=== PATIENT | female | born 1990 | race Caucasian/White ===

== ENCOUNTER 2018-09-13 08:35 | Emergency (ER) | payer BC, OTHER ==
[2018-09-13] MEDS ORDERED: SODIUM CHLORIDE 0.9% 1000ML 1,000 ML IV ONE ×2 (08:50→10:12)
[2018-09-13] MEDS ORDERED: ONDANSETRON HCL 4 MG/2 ML SOL IV ONE (08:50)
[2018-09-13] MEDS ORDERED: ONDANSETRON HCL 4 MG/2 ML SOL ONE (09:00)
[2018-09-13 09:01] LABS: BASOPHILS % (AUTO) 0 % (0-3); EOSINOPHILS % (AUTO) 0 % (0-9); HEMATOCRIT 46 % (35-47); HEMOGLOBIN 15.8 gm/dl (12.0-15.5); LYMPHOCYTES % (AUTO) 3.2 % (10-50); MEAN CORPUSCULAR HEMOGLOBIN 29.3 pg (27.0-32.0); MEAN CORPUSCULAR HGB CONC 34.1 gm/dl (32.0-36.0); MEAN CORPUSCULAR VOLUME 86 fL (81-99); MONOCYTES % (AUTO) 3.5 % (0-12); NEUTROPHILS % (AUTO) 93.3 % (37-80)
[2018-09-13 09:15] VITALS: O2SAT 100
[2018-09-13 09:15] LABS: ALBUMIN 4.4 gm/dl (3.4-5.0); BILIRUBIN,TOTAL 1.7 mg/dl (0.2-1.0); CALCIUM 9.4 mg/dl (8.5-10.1); CARBON DIOXIDE 20.3 mEq/L (21-32); CREATININE 1.11 mg/dl (0.60-1.00); POTASSIUM 3.7 mMol/L (3.5-5.1); TOTAL PROTEIN 8.1 gm/dl (6.4-8.2)
[2018-09-13] MEDS ORDERED: PROCHLORPERAZINE EDISYLATE 5 MG/ML SOL IV ONE (09:46)
[2018-09-13] MEDS ORDERED: PROCHLORPERAZINE EDISYLATE 5 MG/ML SOL ONE (09:46)
[2018-09-13 10:53] VITALS: BP 100/58; PULSE 107; RESP 20; TEMP 98.1
== END 2018-09-13 11:50 | disposition home or self-care (01) ==
LOC: ED 08:35
DX: R11.10 Vomiting, unspecified (principal); K52.89 Other specified noninfective gastroenteritis and colitis; R06.02 Shortness of breath
CPT/HCPCS: 80053; 84703; 85025; 96365; 96366; 96374; 96375; 99282; 99284; J0780; J2405